=== PATIENT | male | born 1980 | race Caucasian/White ===

== ENCOUNTER → 2018-03-16 | Outpatient (CLI) | payer SELFPAY ==
--- NOTE | 2018-03-16 15:46 | Diagnostic Imaging Report ---
INDICATION: Testicular pain. FINDINGS: The right testicle measures 5.0 x 2.0 x 3.2 cm and the left testicle measures 5.2 x 2.1 x 3.2 cm. Both testes show homogeneous echotexture. No discrete mass is seen. There is blood flow to both testes. The epididymides are unremarkable. No hydrocele or varicocele is identified. IMPRESSION: Unremarkable scrotal ultrasound. Dictated by: Dictated on workstation # [id number]
== END ==
LOC: RAD 14:50
PROVIDERS: ATTEND Registered Nurse
DX: N50.819 Testicular pain, unspecified (principal)
CPT/HCPCS: 76870